=== PATIENT | female | born 1985 | race Caucasian/White ===

== ENCOUNTER 2021-06-05 19:36 | Emergency (ER) | payer OTHER, MEDICAID, SELFPAY ==
--- NOTE | ~2021-06-05 | CT_ITS ---
EXAMINATION: CT brain wo con DATE: 06/05/2021 21:18 INDICATION: headache x today TECHNIQUE: Computed tomography (CT) of the head was performed without intravenous contrast. The mA wa s adjusted according to patient size. Iterative reconstruction technique was employed. The dose-lengt h product was 681.00 mGy-cm. COMPARISON: None FINDINGS: No acute intracranial hemorrhage or extra-axial fluid collection. No hydrocephalus, mass, or herniation. No acute ischemic infarct. Unremarkable dural venous sinus attenuation. No acute osseous abnormality. The aerated spaces are clear. Cavum septum pellucidum. IMPRESSION: No acute intracranial process. Reviewed, dictated and finalized at location [facility].
[2021-06-05 19:53] VITALS: BP 141/85; PULSE 84; RESP 20; TEMP 36.3; O2SAT 94
--- NOTE | 2021-06-05 20:04 | ED.ANXIETY ---
HPI - Anxiety General Chief Complaint: Anxiety Stated Complaint: toothache/panic attack Time Seen by Provider: 06/05/21 20:04 Source: patient History of Present Illness HPI narrative: 36-year-old female with history of pseudotumor cerebri on Diamox, polycystic ovarian disease, secondary infertility presents to the ER with -- left lower dental pain -- anxiety attack 2 hours ago with tremor, restlessness -- headache- generalized. Headache started slowly. No nausea/ vomiting. No focal neuro deficits. MD complaint: anxiety Onset (ago): hour(s) ( Started 2 hours ago) Symptoms: palpitations and muscle cramps Severity: mild Place: home History of similar episodes: No Provoking factors: emotional stress Relieving factors: nothing Exacerbating factors: nothing Associated symptoms: headaches Related Data Allergies Allergy/AdvReac Type Severity Reaction Status Date / Time No Known Allergies Allergy Verified 06/05/21 20:02 Review of Systems Review of Systems: All systems reviewed & are unremarkable except as noted in HPI and below Constitutional: Constitutional: Reports as per HPI and Reports no additional constitutional complaints Eyes: Eyes: Reports as per HPI and Reports no additional eye complaints ENT: Reports system reviewed and no additional complaints, except as documented and Reports as per HPI Cardiovascular: Cardiovascular: Reports as per HPI and Reports no additional cardiovascular complaints Respiratory: Respiratory: Reports as per HPI and Reports no additional respiratory complaints Gastrointestinal: Gastrointestinal: Reports as per HPI and Reports no additional gastrointestinal complaints Genitourinary: Genitourinary: Reports no additional female genitourinary complaints, Reports as per HPI and Reports abnormal vaginal bleeding Comments: patient has been having ongoing vaginal bleeding for the past 3 weeks. She has a history of irregular periods. Musculoskeletal: Musculoskeletal: Reports no additional musculoskeletal complaints and Reports as per HPI Integumentary/Breasts: Skin/Breast: Reports system reviewed and no additional complaints, except as docu and Reports as per HPI Neurologic: Reports system reviewed and no additional complaints, except as documented and Reports as per HPI Psychiatric: Psychiatric: Reports no additional psychiatric complaints and Reports as per HPI Endocrine: Endocrine: Reports no additional endocrine complaints and Reports as per HPI Hematologic/Lymphatic: Hematologic/Lymphatic: Reports no additional hematologic/lymphatic complaints and Reports as per HPI Allergic/Immunologic: Allergic/Immunologic: Reports no additional allergic/immunologic complaints and Reports as per HPI [facility] Social History Social History Substance use type: does not use Exam Const: General: healthy appearing, no acute distress and alert Orientation/consciousness: patient oriented x3 HENMT: Head: normal to inspection Ears: external ears normal, TM's normal bilaterally and EAC's normal General nose exam: Normal external nose present and Normal nares present Face and sinus: sinuses nontender Mouth: Yes lip normal Other: extensive dental caries. Bilateral lower 2nd molars are fractured and carious Eyes: Conjunctivae: conjunctivae normal Pupils: Equal, round and reactive pupils present Neck: Neck: normal visual inspection and no meningeal signs Chest: Chest palpation & inspection: normal inspection of the chest Resp: Effort & Inspection: normal respiratory effort Auscultation: clear to auscultation bilaterally Cardio: Rate: regular rate Rhythm: regular rhythm GI: GI Palp: Yes Soft to palpation Auscultation: normal bowel sounds : General: Yes no CVA tenderness Back/Spine/Pelvis: Back: no CVA tenderness Skin: General skin exam: normal color Rashes: no rashes Neuro: General: patient oriented x3, moves all extremities, n
[2021-06-05] MEDS: PROCHLORPERAZINE EDISYLATE 10 MG/2 ML VIAL IM (20:25)
[2021-06-05 20:44] LABS: Add Urine Microscopic? YES; Appearance Urine Clear (Clear); Bilirubin Urine Negative (Negative); Blood Urine 3+ (Negative); Color Urine Light Yellow (Yellow); Glucose Urine UA Negative (Negative); Ketones Urine Negative (Negative); Leukocyte Esterase Ur 1+ (Negative); Nitrate Urine Negative (Negative); Protein Urine Negative (Negative); Specific Grav Ur <= 1.005 (1.010-1.020); Urobilinogen Urine 0.2 mg/dL (0.2-1.0); pH Urine 6.5 (5.0-8.0)
[2021-06-05 20:52] LABS: RBC Urine 0-2 /hpf (0-2); Squamous Epithelial Cell Urine Few /hpf (Few); WBC Urine 0-3 /hpf (0-3)
[2021-06-05 20:53] LABS: Bacteria Urine 1+ /hpf; Urine Pregnancy Test Negative
[2021-06-05 20:54] LABS: Pregnancy On Board Control Positive
[2021-06-05] MEDS: ALPRAZolam (*CRX) 0.5 MG TABLET PO (20:58)
[2021-06-05] MEDS: CLINDAMYCIN HCL 150 MG CAP 300 MG PO (21:48)
[2021-06-05 22:07] VITALS: BP 141/88; PULSE 85; RESP 16; O2SAT 95
== END 2021-06-05 22:10 | disposition home or self-care (01) ==
PROVIDERS: Emergency Provider Internal Medicine Critical Care Medicine; PCP Family Medicine
DX: F41.9 Anxiety disorder, unspecified (principal); K08.89 Other specified disorders of teeth and supporting structures; K02.9 Dental caries, unspecified
CPT/HCPCS: 70450; 81001; 81025; 96372; 99284; A9270; J0780

== ENCOUNTER 2021-08-20 18:47 | Emergency (ER) | payer OTHER, MEDICAID, SELFPAY ==
--- NOTE | ~2021-08-20 | CT_ITS ---
EXAMINATION: CT abdomen pelvis wo con DATE: 08/20/2021 20:44 INDICATION: Left lower quadrant abdominal pain for one week TECHNIQUE: Computed tomography (CT) of the abdomen and pelvis was performed without intravenous contr ast. Automated exposure control and iterative reconstruction technique were employed. Exam dose: 156 9.93 mGy-cm total exam DLP. COMPARISON: None. FINDINGS: The lung bases are clear. Normal heart size. No pericardial or pleural effusion. Numerous faceted gallstones nearly completely filled the gallbladder lumen. No gallbladder wall thick ening or pericholecystic fluid or fat infiltration is evident. There is no bile duct dilatation. No hepatic space-occupying mass lesion. No bile duct or pancreatic duct dilatation. No pancreatic mas s lesion or calcification. Normal splenic size. Possible small left adrenal adenoma. No renal mass lesion or urinary tract calculus or hydroureteronephrosis. The uterus, adnexal areas ar e unremarkable. The bladder is evacuated, not optimally evaluated. No bowel obstruction or intraperitoneal free air. Normal caliber of the abdominal aorta. No intraperitoneal or retroperitoneal or pelvic mass lesion or adenopathy or ascites. No suspicious osteolytic or osteoblastic lesions. IMPRESSION: Cholelithiasis Small left adrenal adenoma Reviewed, dictated and finalized at [facility]. Reviewed, dictated and finalized at location [facility].
[2021-08-20 19:04] VITALS: BP 116/55; PULSE 98; RESP 22; TEMP 36.4; O2SAT 99
[2021-08-20 19:51] LABS: Basophils Absolute Auto 0.03 K/mm3 (0.00-0.10); Basophils Percent Auto 0.3 % (0.0-1.0); Eosinophils Absolute Auto 0.18 K/mm3 (0.02-0.50); Eosinophils Percent Auto 1.6 % (1.0-6.0); Hemoglobin 12.2 g/dL (12.0-15.0); Immature Granulocyte Absolute 0.04 K/mm3 (0.00-0.00); Immature Granulocyte Percent A 0.4 % (0.0-0.0); Lymphocytes Absolute Auto 2.22 K/mm3 (1.10-4.50); Lymphocytes Percent Auto 19.7 % (18.0-42.0); Mean Corpuscular Hemoglobin 30.7 pg (27.0-31.0); Mean Platelet Volume 10.7 fl (9.2-11.8); Monocytes Absolute Auto 0.66 K/mm3 (0.10-0.90); Monocytes Percent Auto 5.9 % (2.0-11.0); Neutrophils Absolute Auto 8.2 K/mm3 (1.7-7.2); Neutrophils Percent Auto 72.1 % (50.0-70.0); Platelet Count Result 333 K/mm3 (150-420); Red Blood Count 3.98 M/mm3 (4.20-5.40); Red Cell Distribution Width 12.6 % (11.6-14.4); White Blood Count 11.3 K/mm3 (4.8-10.8)
[2021-08-20 20:14] LABS: Appearance Urine Clear (Clear); Bilirubin Urine 1+ (Negative); Blood Urine 3+ (Negative); Glucose Urine UA Negative (Negative); Ketones Urine Negative (Negative); Leukocyte Esterase Ur Trace LEU/UL (Negative); Nitrate Urine Positive (Negative); Protein Urine 2+ (Negative); Specific Grav Ur >= 1.030 (1.010-1.020)
[2021-08-20 20:15] LABS: Alanine Aminotransferase 27 U/L (14-59); Albumin Level 4.1 g/dL (3.4-5.0); Alkaline Phosphatase 58 U/L (46-116); Anion Gap 7 mmol/L (8-16); Aspartate Amino Transferase 12 U/L (15-37); Bilirubin,Total 0.7 mg/dL (0.00-1.00); Blood Urea Nitrogen 10 mg/dL (7-18); Calcium 8.9 mg/dL (8.5-10.1); Carbon Dioxide 27 mmol/L (21-32); Chloride 105 mmol/L (98-108); Estimated Glomerular Filt Rate > 60; Glucose 94 mg/dL (70-99); Lipase 46 U/L (73-393); Osmolality Calculated 287 mOsm/kg (285-295); Potassium 4.3 mmol/L (3.5-5.1); Sodium 139 mmol/L (136-145); Total Protein 7.3 g/dL (6.4-8.2)
[2021-08-20 20:18] LABS: Lactic Acid Reflex 1.5 mmol/L (0.4-2.0)
[2021-08-20] MEDS: PANTOPRAZOLE SODIUM IV 40 MG VIAL IV PUSH (20:18)
[2021-08-20] MEDS: KETOROLAC (*BKC) 60 MG/2 ML VIAL IM (20:18)
[2021-08-20] MEDS: ONDANSETRON INJ 4 MG/2 ML VIAL IV PUSH (20:18)
[2021-08-20] MEDS: SODIUM CHLORIDE 0.9% IV 1,000 ML 999 ML IV CONT (20:19)
[2021-08-20 20:27] LABS: Add Urine Microscopic? YES; Bacteria Urine Trace /hpf; Color Urine Dark Red (Yellow); RBC Urine >75 /hpf (0-2); Squamous Epithelial Cell Urine Rare /hpf (Few)
[2021-08-20 20:29] LABS: SPREG INTERNAL CONTROL Positive; Serum Qual hCG Negative
--- NOTE | 2021-08-20 20:31 | PC.NURSE ---
Pt removed vitals equipment from person
--- NOTE | 2021-08-20 21:42 | ED.ABDPAIN ---
HPI - Abdominal Pain General Chief Complaint: Abdominal Pain Stated Complaint: pain left side abd Time Seen by Provider: 08/20/21 18:51 Source: patient and RN notes reviewed Mode of arrival: ambulatory Limitations: no limitations History of Present Illness MD elicited complaint: abdominal pain ( llq abdominal pain, with mild suprapubic and epigastric pain and nausea. no acute vomiting or fever.) Pertinent past history: none Onset (ago): day(s) (4) Location: suprapubic Severity: mild Pain scale (0-10): 5 Quality: cramping, aching and dull Exacerbating factors: nothing Relieving factors: nothing Associated symptoms: nausea Related Data Patient : No Home Medications Medication Instructions Recorded Confirmed hydrocodone 5 mg-acetaminophen 325 5 tablet PO PRN PRN Pain 08/20/21 08/20/21 mg tablet Allergies Allergy/AdvReac Type Severity Reaction Status Date / Time metformin Allergy Unknown Verified 08/20/21 19:09 Review of Systems Review of Systems: All systems reviewed & are unremarkable except as noted in HPI and below Constitutional: Constitutional: Reports no additional constitutional complaints Eyes: Eyes: Reports no additional eye complaints ENT: Reports system reviewed and no additional complaints, except as documented Cardiovascular: Cardiovascular: Reports no additional cardiovascular complaints Respiratory: Respiratory: Reports no additional respiratory complaints Gastrointestinal: Gastrointestinal: Reports no additional gastrointestinal complaints Genitourinary: Genitourinary: Reports no additional female genitourinary complaints Musculoskeletal: Musculoskeletal: Reports no additional musculoskeletal complaints Integumentary/Breasts: Skin/Breast: Reports system reviewed and no additional complaints, except as docu Neurologic: Reports system reviewed and no additional complaints, except as documented Psychiatric: Psychiatric: Reports no additional psychiatric complaints Endocrine: Endocrine: Reports no additional endocrine complaints Hematologic/Lymphatic: Hematologic/Lymphatic: Reports no additional hematologic/lymphatic complaints Allergic/Immunologic: Allergic/Immunologic: Reports no additional allergic/immunologic complaints PMFSH Past Medical History Medical History (Updated 08/21/21 @ 08:17 by Chemo Lawson MD) Abdominal pain UTI (urinary tract infection) Social History Social History Substance use type: does not use Exam Const: General: healthy appearing and no acute distress Nutritional Appearance: well nourished Orientation/consciousness: patient oriented x3 Limitations: no limitations HENMT: Head: normal to inspection Ears: external ears normal, TM's normal bilaterally and EAC's normal General nose exam: Normal external nose present and Normal nares present Face and sinus: normal facial exam and sinuses nontender Mouth: Yes Normal oral and palatal mucosa present and Yes moist mucous membranes Teeth and gingiva: dentition normal Throat: posterior oropharynx normal Eyes: Conjunctivae: conjunctivae normal Pupils: Equal, round and reactive pupils present EOM: EOMs intact bilaterally Neck: Neck: normal visual inspection, no lymphadenopathy and no meningeal signs Chest: Chest palpation & inspection: normal inspection of the chest Resp: Effort & Inspection: normal respiratory effort Auscultation: clear to auscultation bilaterally Cardio: Rate: regular rate Rhythm: regular rhythm GI: GI Palp: Yes Soft to palpation and Yes Tenderness to palpation present (GI) (minimally tender suprapubic abdomen.) Auscultation: normal bowel sounds : General: Yes bladder normal to palpation and Yes no CVA tenderness Bimanual exam- vagina & uterus: bladder normal to palpation Back/Spine/Pelvis: Back: no CVA tenderness Skin: General skin exam: normal color Rashes: no rashes Wounds: no wounds Tad
[2021-08-20] MEDS: MORPHINE SULFATE (*CRX) 2 MG/ML INJ IV PUSH (21:55)
[2021-08-20 22:26] VITALS: BP 135/81; PULSE 88; RESP 18; O2SAT 99
== END 2021-08-20 22:27 | disposition home or self-care (01) ==
PROVIDERS: Emergency Provider Emergency Medicine; PCP Physician Assistant
DX: N39.0 Urinary tract infection, site not specified (principal); R10.9 Unspecified abdominal pain
CPT/HCPCS: 36415; 74176; 80053; 81001; 83605; 83690; 84703; 85025; 87086; 87088; 96361; 96365; 96372; 96375; 99284; C9113; J0696; J1885; J2270; J2405; J7030

== ENCOUNTER 2024-12-26 12:30 | Outpatient (CLI) | payer MEDICAID, SELFPAY ==
--- NOTE | ~2024-12-26 | US_ITS ---
EXAM/PROCEDURE: US transvaginal HISTORY: IRREGULAR MENSES COMPARISON: None available. TECHNIQUE: Endovaginal pelvic ultrasound LMP: October 20, 2024 Note: Exam significantly limited by patient body habitus and suboptimal sonographic windows. FINDINGS: The uterus measures 10.2 x 6.3 x 5.8 cm. Hypoechoic area noted in the endometrial canal. Endometrial stripe thickness is 1.3 cm Neither the right nor the left ovary are not visualized. No free fluid is seen. No gross mass seen on images labeled right and left adnexa. IMPRESSION: 1. Thickened endometrial stripe with subcentimeter hypoechoic focus within the endometrial canal of uncertain significance. Findings could represent small clot, although a small polyp or neoplastic lesion is not excluded. 2. Nonvisualization of the ovaries. Reviewed, dictated and finalized at location A. [employer] IMPRESSION: 1. Thickened endometrial stripe with subcentimeter hypoechoic focus within the endometrial canal of uncertain significance. Findings could represent small esteban t, although a small polyp or neoplastic lesion is not excluded. 2. Nonvisualization of the ovaries.
== END 2024-12-26 12:31 | disposition home or self-care (01) ==
PROVIDERS: PCP Physician Assistant; Visit Provider Registered Nurse
DX: N92.6 Irregular menstruation, unspecified (principal); R93.89 Abnormal findings on diagnostic imaging of other specified body structures
CPT/HCPCS: 76830